=== PATIENT | male | born 2000 | race Caucasian/White ===

== ENCOUNTER → 2021-03-14 | Outpatient (CLI) | payer BC ==
--- NOTE | 2021-03-14 12:09 | REP ---
INDICATION: CERVICALGIA. Rule out C4 herniation. COMPARISON: None. TECHNIQUE: Sagittal and axial T1 and T2-weighted scans are acquired in the usual fashion with and without fat saturation. Sequences include spin echo, turbo spin-echo, and STIR imaging sequences. FINDINGS: Incidental note is made of somewhat prominent tonsillar soft tissues bilaterally. The tonsils collapse 1 another in the midline. There also borderline anterior cervical lymph nodes present bilaterally, 1.3 cm in short axis dimension on the left and 1.0 cm in short axis dimension on the right. This should be correlated with physical exam findings. Cervical vertebral body heights are preserved alignment is normal. The cervical cord is normal in course, caliber and signal intensity. Craniocervical junction is unremarkable. Axial and sagittal images at C2-C3 show no abnormality. At C3-C4, there is minimal central disc bulging. No foraminal narrowing or spinal stenosis. At C4-C5, there is a very small central focal disc protrusion. No cord compression or spinal stenosis seen. No foraminal narrowing noted. At C5-6, there is minimal degenerative narrowing and central disc bulging. No focal disc protrusion is seen. No spinal stenosis noted. No foraminal narrowing is seen. The C6-7 level is unremarkable. C7-T1 shows no abnormality. IMPRESSION: Minimal central disc bulging at C3-4 and C5-6. A very small central focal disc protrusion is seen at C4-5. No cord compression or foraminal narrowing is seen. Incidental note is made of prominent tonsils, adenoids, and bilateral anterior cervical lymph nodes. Suggest correlation with physical exam with soft tissue neck CT study if clinically warranted. <Electronically signed by Rogelio Palumbo > 03/14/21 [id number]
== END ==
LOC: M RAD 10:29
PROVIDERS: ATTEND Physician Assistant
DX: M54.2 Cervicalgia (principal)

== ENCOUNTER 2021-04-18 18:30 | Emergency (ER) | payer BC, OTHER ==
[~2021-04-18] VITALS: Ht 175.3 cm; Wt 79.9 kg
[2021-04-18] MEDS ORDERED: MELO15TA28 PO (18:38)
[2021-04-18 22:45] VITALS: BP 120/66
== END 2021-04-18 22:46 | disposition home or self-care (01) ==
LOC: M ED 18:30
DX: S61.552A Open bite of left wrist, initial encounter (principal); W54.0XXA Bitten by dog, initial encounter; Y92.9 Unspecified place or not applicable; Y93.9 Activity, unspecified; Y99.9 Unspecified external cause status; Z88.8 Allergy status to other drugs, medicaments and biological substances

== ENCOUNTER → 2021-08-05 | Outpatient (CLI) | payer BC ==
[~2021-08-05] MED LIST: MELO15TA28 PO
--- NOTE | 2021-08-05 15:36 | REP ---
INDICATION: THYROIDITIS COMPARISON: None. TECHNIQUE: Pacheco scale and color evaluation of the thyroid gland using the linear high frequency transducer. FINDINGS: The thyroid gland is normal in contour, shape, size, vascularity and echogenicity. No nodule/mass or cystic abnormalities are appreciated. Right thyroid lobe measures 5.7 x 2.1 x 1.5 cm. Isthmus measures 2.5 mm in width. Left thyroid lobe measures 4.0 x 1.5 x 1.5 cm. IMPRESSION: Normal thyroid ultrasound. <Electronically signed by Hayes Burleson > 08/05/21 [id number]
== END ==
LOC: M RAD 15:02
PROVIDERS: ATTEND Otolaryngology
DX: E06.9 Thyroiditis, unspecified (principal)

== ENCOUNTER → 2021-08-10 | Outpatient (CLI) | payer BC ==
[2021-08-10 18:50] LABS: THYROID STIMULATING HORMONE 0.88 uIU/ML (0.358-3.740)
[2021-08-10 18:51] LABS: THYROGLOBULIN ANTIBODY 15.5 U/ML (<60.0); THYROID PEROXIDASE ANTIBODY 28.1 U/ML (<60.0); TOTAL T3 111.1 NG/DL (60.0-181.0)
== END ==
LOC: M LAB 17:13
PROVIDERS: ATTEND Otolaryngology
DX: E06.9 Thyroiditis, unspecified (principal)

== ENCOUNTER → 2021-12-07 | Outpatient (CLI) | payer BC ==
[2021-12-07 14:53] LABS: BASO % 0.4 % (0.0-1.0); EOS # 0.1 10^3/uL (0.0-0.5); HEMATOCRIT 43.8 % (42.0-52.0); HEMOGLOBIN 14.8 g/dl (13.5-17.5); LYMPH # 2.5 10^3/uL (1.5-5.0); LYMPH % 31.5 % (24.0-44.0); MEAN CORPUSCULAR HEMOGLOBIN 30.1 pg (27.0-33.0); MEAN CORPUSCULAR HGB CONC 33.8 g/dl (32.0-36.5); MONO # 0.7 10^3/uL (0.0-0.8); MONO % 8.7 % (2.0-8.0); NEUTROPHILS # 4.5 10^3/uL (1.5-8.5); PLATELET COUNT, AUTOMATED 317 10^3/uL (150-450); RED BLOOD COUNT 4.92 10^6/uL (4.30-6.10); WHITE BLOOD COUNT 7.8 10^3/uL (4.0-10.0)
== END ==
LOC: M LAB 13:42
PROVIDERS: ATTEND Orthopaedic Surgery
DX: J35.1 Hypertrophy of tonsils (principal); M54.2 Cervicalgia; E06.9 Thyroiditis, unspecified

== ENCOUNTER → 2022-01-01 | Outpatient (CLI) | payer BC | LOC: M RAD 10:32 | PROVIDERS: ATTEND Orthopaedic Surgery | DX: M50.21 Other cervical disc displacement, high cervical region (principal); M50.221 Other cervical disc displacement at C4-C5 level; J35.1 Hypertrophy of tonsils ==

== ENCOUNTER → 2022-02-15 | Outpatient (CLI) | payer BC ==
[2022-02-15 11:30] LABS: BASO % 0.4 % (0.0-1.0); EOS # 0.1 10^3/uL (0.0-0.5); EOS % 0.8 % (0.0-3.0); HEMATOCRIT 40.5 % (42.0-52.0); HEMOGLOBIN 13.8 g/dl (13.5-17.5); LYMPH # 1.7 10^3/uL (1.5-5.0); LYMPH % 24.5 % (24.0-44.0); MEAN CORPUSCULAR HEMOGLOBIN 29.8 pg (27.0-33.0); MEAN CORPUSCULAR HGB CONC 34.1 g/dl (32.0-36.5); MEAN CORPUSCULAR VOLUME 87.5 fl (80.0-96.0); MONO # 0.9 10^3/uL (0.0-0.8); MONO % 12.7 % (2.0-8.0); NEUTROPHILS # 4.3 10^3/uL (1.5-8.5); NEUTROPHILS % 61.3 % (36.0-66.0); PLATELET COUNT, AUTOMATED 273 10^3/uL (150-450); RED BLOOD COUNT 4.63 10^6/uL (4.30-6.10); WHITE BLOOD COUNT 7.1 10^3/uL (4.0-10.0)
[2022-02-15 12:45] LABS: FREE T4 0.95 NG/DL (0.76-1.46); THYROID STIMULATING HORMONE 0.563 uIU/ML (0.358-3.740)
== END ==
LOC: M RAD 10:42
PROVIDERS: ATTEND Student in an Organized Health Care Education/Training Program
DX: E07.89 Other specified disorders of thyroid (principal)

== ENCOUNTER 2022-06-05 18:26 | Emergency (ER) | payer BC ==
[~2022-06-05] VITALS: Ht 175.3 cm; Wt 82.5 kg
[2022-06-05 22:28] LABS: BASO % 0.4 % (0.0-1.0); EOS # 0.1 10^3/uL (0.0-0.5); HEMATOCRIT 39.4 % (42.0-52.0); HEMOGLOBIN 13.3 g/dl (13.5-17.5); LYMPH # 3.4 10^3/uL (1.5-5.0); LYMPH % 34.3 % (24.0-44.0); MEAN CORPUSCULAR HEMOGLOBIN 30.2 pg (27.0-33.0); MEAN CORPUSCULAR HGB CONC 33.8 g/dl (32.0-36.5); MEAN CORPUSCULAR VOLUME 89.3 fl (80.0-96.0); MONO % 9.8 % (2.0-8.0); NEUTROPHILS # 5.4 10^3/uL (1.5-8.5); NEUTROPHILS % 54.2 % (36.0-66.0); PLATELET COUNT, AUTOMATED 296 10^3/uL (150-450); RED BLOOD COUNT 4.41 10^6/uL (4.30-6.10)
[2022-06-05 23:03] LABS: BLOOD UREA NITROGEN 16 MG/DL (7-18); CARBON DIOXIDE LEVEL 29 MEQ/L (21-32); CHLORIDE LEVEL 106 MEQ/L (98-107); GLOMERULAR FILTRATION RATE > 60.0 (>60); GLUCOSE, FASTING 97 MG/DL (70-100); POTASSIUM SERUM 3.9 MEQ/L (3.5-5.1); SODIUM LEVEL 141 MEQ/L (136-145)
[2022-06-05 23:04] LABS: ALT/SGPT 27 U/L (12-78); BILIRUBIN,DIRECT 0.2 MG/DL (0.0-0.2); BILIRUBIN,TOTAL 0.2 MG/DL (0.2-1.0); CALCIUM LEVEL 9.5 MG/DL (8.5-10.1); LIPASE 65 U/L (73-393); TOTAL PROTEIN 7.7 GM/DL (6.4-8.2)
[2022-06-06 00:11] VITALS: BP 132/85
== END 2022-06-06 00:11 | disposition home or self-care (01) ==
LOC: M ED 18:26
DX: T58.91XA Toxic effect of carbon monoxide from unspecified source, accidental (unintentional), initial encounter (principal); R51.9 Headache, unspecified; F10.10 Alcohol abuse, uncomplicated; Y92.009 Unspecified place in unspecified non-institutional (private) residence as the place of occurrence of the external cause; Y93.9 Activity, unspecified; Z88.8 Allergy status to other drugs, medicaments and biological substances

== ENCOUNTER 2022-07-12 14:40 | Emergency (ER) | payer BC ==
[~2022-07-12] VITALS: Ht 175.3 cm; Wt 81.8 kg
[2022-07-12] MEDS ORDERED: IBUP-1022 PO (17:09)
[2022-07-12] MEDS ORDERED: IBUPROFEN 600MG TAB PO ONE (17:10)
[2022-07-12 17:25] VITALS: BP 142/70
== END 2022-07-12 17:26 | disposition home or self-care (01) ==
LOC: M ED 14:40
DX: S60.221A Contusion of right hand, initial encounter (principal); W22.09XA Striking against other stationary object, initial encounter; F10.10 Alcohol abuse, uncomplicated; Z88.8 Allergy status to other drugs, medicaments and biological substances; Z79.899 Other long term (current) drug therapy; Y99.9 Unspecified external cause status; Y93.9 Activity, unspecified